=== PATIENT | female | born 1975 | race Asian ===

== ENCOUNTER 2017-11-09 08:12 | Outpatient (CLI) | payer BC ==
--- NOTE | 2017-11-09 10:56 | MMO ---
SCREENING MAMMOGRAPHY: DATE: 11/09/17. COMPARISON: 11/06/15. HISTORY: Screening mammogram. FINDINGS: The patient's mammogram is interpreted with the assistance of computer-aided detection. Scattered fibroglandular densities are present. There is no dominant mass lesion or architectural di stortion. No concerning microcalcifications. IMPRESSION: BI-RADS 1 - negative. Annual screening advised. BIRADS 1: Negative Routine annual screening mammography (for women over age 40) POS: [facility]
== END 2017-11-09 08:13 | disposition home or self-care (01) ==
LOC: SCSMAMMO 08:12
PROVIDERS: ATTEND Family Medicine
DX: Z12.31 Encounter for screening mammogram for malignant neoplasm of breast (principal)
CPT/HCPCS: 77067

== ENCOUNTER 2018-11-10 08:39 | Outpatient (CLI) | payer BC ==
--- NOTE | 2018-11-10 09:25 | MMO ---
Bilateral MAMMO Bilat Screen [facility]. CLINICAL HISTORY: Patient is 43 years old and is seen for screening. The patient has no family history of breast cancer. The patient has no personal history of cancer. VIEWS: The views performed were: bilateral craniocaudal and bilateral mediolateral oblique. FILMS COMPARED: The present examination has been compared to prior imaging studies performed at [facility] on 11/06/2015 and 11/09/2017. This study has been interpreted with the assistance of computer-aided detection. MAMMOGRAM FINDINGS: The breasts are heterogeneously dense, which could obscure a lesion on mammography. There are no suspicious masses, suspicious calcifications, or new areas of architectural distortion. IMPRESSION: THERE IS NO MAMMOGRAPHIC EVIDENCE OF MALIGNANCY. A ROUTINE FOLLOW-UP MAMMOGRAM IN 1 YEAR IS RECOMMENDED. ACR BI-RADS Category 1 - Negative MAMMOGRAPHY NOTE: 1. A negative mammogram report should not delay a biopsy if a dominant of clinically suspicious mass is present. 2. Approximately 10% to 15% of breast cancers are not detected by mammography. 3. Adenosis and dense breasts may obscure an underlying neoplasm.
== END 2018-11-10 08:40 | disposition home or self-care (01) ==
LOC: SCSMAMMO 08:39
PROVIDERS: ATTEND Family Medicine
DX: Z12.31 Encounter for screening mammogram for malignant neoplasm of breast (principal)
CPT/HCPCS: 77067

== ENCOUNTER 2018-11-18 09:30 | Outpatient (CLI) | payer BC ==
--- NOTE | 2018-11-18 10:11 | ULT ---
Exam: Pelvic ultrasound HISTORY: Enlarged uterus COMPARISON: None TECHNIQUE: Multiple grayscale and color Doppler images were obtained in a transabdominal and transvag inal pelvic ultrasound. Spectral analysis of the Doppler waveforms of the ovaries were performed. FINDINGS: CERVIX: Within normal limits for visualized. UTERUS: Heterogeneous and measures 9.3 cm x 6.6 cm x 4.4 cm. A heterogeneous lobulated area small is seen involving the anterior body of uterus which may represent a small uterine fibroid measuring 2.3 cm in maximal dimensions. ENDOMETRIAL STRIPE: The endometrial stripe measures 1.6 cm in thickness. This thickness would be abno rmal in a postmenopausal female patient, and this also would be mildly thickened for a premenopausal female patient. No fluid or fluid collection is seen in the endometrial canal. RIGHT OVARY: Normal flow, without focal mass. LEFT OVARY: Normal flow, without focal mass. IMPRESSION: 1. Thickening of the endometrial stripe which would certainly be abnormal in a postmenopausal female patient. If the patient is postmenopausal, endometrial carcinoma cannot be excluded based on this exam. If the patient is premenopausal, this also represents mild thickening of the endometrial stripe . 2. Heterogeneity of the uterus with suggestion of a small mass anterior body of uterus which may repr esent a small uterine fibroid. 3. Normal appearing bilateral ovaries.
== END 2018-11-18 09:31 | disposition home or self-care (01) ==
LOC: SCSULT 09:30
PROVIDERS: ATTEND Family Medicine
DX: N85.2 Hypertrophy of uterus (principal); R93.89 Abnormal findings on diagnostic imaging of other specified body structures; N85.8 Other specified noninflammatory disorders of uterus
CPT/HCPCS: 76856